=== PATIENT | female | born 1970 ===

== ENCOUNTER 2018-07-12 08:37 | Emergency (ER) | payer OTHER, SELFPAY ==
[2018-07-12 08:39] VITALS: BMI 23.2
[2018-07-12 08:41] VITALS: RESP 18
--- NOTE | 2018-07-12 08:53 | ED PDOC ---
HPI: CCC, URI, Sore Throat Time Seen by Provider: 07/12/18 08:39 Chief Complaint (Provider): Cough History Per: Patient History/Exam Limitations: no limitations Onset/Duration Of Symptoms: Other (x6 weeks) Current Symptoms Are (Timing): Still Present Associated Symptoms: Cough. denies: Fever Additional Complaint(s): 48 year old female, with no past medical history, presents to the ED complaining of persistent nonproductive cough for 6 weeks. Patient had been taking Promethazine DM with temporary relief. Denies fever or SOB. PMD: none provided Past Medical History Reviewed: Historical Data, Nursing Documentation, Vital Signs Vital Signs: Last Vital Signs Temp 98.4 F 07/12/18 08:40 Pulse 91 H 07/12/18 08:40 Resp 18 07/12/18 08:40 BP 136/75 07/12/18 08:40 Pulse Ox 98 07/12/18 08:40 - Medical History PMH: No Chronic Diseases - Surgical History Surgical History: No Surg Hx - Family History Family History: States: Unknown Family Hx - Home Medications Home Medications: Ambulatory Orders Medication Instructions Recorded Naproxen [Naprosyn] 500 mg PO Q12H #20 tab 06/18/15 Benzonatate [Tessalon Perle] 100 mg PO Q8 #12 capsule 07/12/18 - Allergies Allergies/Adverse Reactions: Allergies Allergy/AdvReac Type Severity Reaction Status Date / Time No Known Allergies Allergy Verified 06/18/15 08:47 Review of Systems ROS Statement: Except As Marked, All Systems Reviewed And Found Negative Constitutional: Negative for: Fever Respiratory: Positive for: Cough. Negative for: Shortness of Breath Physical Exam - Reviewed Nursing Documentation Reviewed: Yes Vital Signs Reviewed: Yes - Physical Exam Appears: Positive for: Non-toxic, No Acute Distress Head Exam: Positive for: ATRAUMATIC, NORMOCEPHALIC Skin: Positive for: Normal Color, Warm, Dry Eye Exam: Positive for: Normal appearance ENT: Positive for: Normal ENT Inspection Neck: Positive for: Normal, Painless ROM Cardiovascular/Chest: Positive for: Regular Rate, Rhythm Respiratory: Positive for: Normal Breath Sounds. Negative for: Wheezing, Respiratory Distress Extremity: Positive for: Normal ROM Neurologic/Psych: Positive for: Alert, Oriented. Negative for: Motor/Sensory Deficits - ECG O2 Sat by Pulse Oximetry: 98 (RA) Pulse Ox Interpretation: Normal Medical Decision Making Medical Decision Making: Initial Impression: Chronic cough Initial Plan: Will obtain chest X-ray and will reevaluate patient. Scribe Attestation: Documented by Lance Adler acting as a scribe for Stephen Brennan MD. No infiltrates on CXR. No indication for antibiotics. Will Rx Tessalon for symptomatic treatment and refer for outpt follow up Provider Scribe Attestation: All medical record entries made by the Scribe were at my direction and personally dictated by me. I have reviewed the chart and agree that the record accurately reflects my personal performance of the history, physical exam, medical decision making, and the department course for this patient. I have also personally directed, reviewed, and agree with the discharge instructions and disposition. Disposition - Clinical Impression Clinical Impression: Chronic cough - Patient ED Disposition Is Patient to be Admitted: No Counseled Patient/Family Regarding: Studies Performed, Diagnosis, Need For Followup, Rx Given - Disposition Referrals: [facility] [Outside] Disposition: Routine/Home Disposition Time: 09:26 Condition: FAIR Prescriptions: Benzonatate [Tessalon Perle] 100 mg PO Q8 #12 capsule Instructions: Cough in Adults Print Language: UPPER SORBIAN
[2018-07-12 09:36] VITALS: BP 132/67; PULSE 83; TEMP 97.9; O2SAT 100
--- NOTE | 2018-07-12 12:26 | RAD ---
HISTORY: cough COMPARISON: None available. TECHNIQUE: Chest PA and lateral FINDINGS: LUNGS: No focal consolidation. Please note that chest x-ray has limited sensitivity for the detection of pulmonary masses. PLEURA: No significant pleural effusion identified. No definite pneumothorax . CARDIOVASCULAR: Heart size appears within normal limits. No atherosclerotic calcification present. OSSEOUS STRUCTURES: Mild degenerative changes. VISUALIZED UPPER ABDOMEN: Right upper quadrant surgical clips. OTHER FINDINGS: None. IMPRESSION: No focal consolidation.
== END 2018-07-12 09:30 | disposition home or self-care (01) ==
LOC: H.ER 08:37
DX: R05 Cough (principal)